=== PATIENT | male | born 2000 | race Caucasian/White ===

== ENCOUNTER 2020-07-12 04:55 | Emergency (ER) | payer SELFPAY ==
[2020-07-12 05:03] VITALS: BP 107/86; Wt 72.7 kg
[2020-07-12 05:29] LABS: BASOPHILS 0.4 % (0-2); IMMATURE GRANULOCYTES 0.3 % (0-5); LYMPHOCYTES 22.9 % (15-50); MCH 29.5 pg (26.0-34.0); MCV 86.7 fL (80.0-100.0); MEAN PLATELET VOLUME 8.8 fL (7.4-10.4); MONOCYTES 13.6 % (2-11); NEUTROPHILS 60.8 % (40-80); PLATELET COUNT 206 10x3/uL (130-400); RBC 5.42 10x6/uL (4.20-6.10); RDW 13.7 % (11.5-14.5); WBC 12.8 10x3/uL (4.8-10.8)
[2020-07-12 05:49] LABS: BILIRUBIN NEGATIVE (NEGATIVE); KETONE LARGE mg/dL (NEGATIVE); NITRITE NEGATIVE (NEGATIVE); UROBILINOGEN NORMAL (NORMAL)
[2020-07-12 05:50] LABS: UDS - AMPHET POSITIVE QUAL (NEGATIVE); UDS - BARB NEGATIVE QUAL (NEGATIVE); UDS - BENZO NEGATIVE QUAL (NEGATIVE); UDS - COCAINE NEGATIVE QUAL (NEGATIVE); UDS - OPIATE NEGATIVE QUAL (NEGATIVE); UDS - PCP NEGATIVE QUAL (NEGATIVE); UDS - THC POSITIVE QUAL (NEGATIVE)
[2020-07-12 06:06] LABS: ANION GAP 26.8 mmol/L (8-16); CALCIUM 9.6 mg/dL (8.5-10.1); CARBON DIOXIDE 16.2 mmol/L (21.0-32.0); CREATININE - SERUM 1.5 mg/dL (0.6-1.3)
[2020-07-12 06:12] LABS: BILIRUBIN - TOTAL 1.08 mg/dL (0.2-1.3); MAGNESIUM - SERUM 2.7 mg/dL (1.8-2.4); PROTEIN - SERUM 8.7 g/dL (6.4-8.2)
== END 2020-07-12 06:42 | disposition home or self-care (01) ==
LOC: D.ER 04:55
PROVIDERS: Family Medicine
DX: R41.82 Altered mental status, unspecified (principal); N28.9 Disorder of kidney and ureter, unspecified; F19.10 Other psychoactive substance abuse, uncomplicated